=== PATIENT | female | born 1945 | race Caucasian/White ===

== ENCOUNTER 2016-06-09 06:36 | Inpatient (IN) | payer OTHER, BC ==
[2016-05-18 08:06] VITALS: BMI 36.0
--- NOTE | 2016-05-18 08:48 | PAT Medication Instructions ---
Service Date May 18, 2016. Current Home Medication List Aspirin (Aspirin Ec), 81 MG PO QAM Cholecalciferol (Vitamin D), 1 TAB PO QAM Ferrous Sulfate (Iron), 1 TAB PO QAM Losartan Potassium (Cozaar), 100 MG PO HS Metformin Hcl (Glucophage), 1,000 MG PO BID Omeprazole (Prilosec), 20 MG PO HS Rosuvastatin Calcium (Crestor), 20 MG PO HS Venlafaxine Hcl (Effexor Xr), 1 CAPSULE PO HS Medication Instructions For Your Scheduled Surgery - Hold the following medications 48 hours prior to surgery: Metformin Hcl (Glucophage), 1,000 MG PO BID - Hold the following medications the morning of surgery: Cholecalciferol (Vitamin D), 1 TAB PO QAM Ferrous Sulfate (Iron), 1 TAB PO QAM - TAKE the following medications the morning of surgery with a sip of water OTHERWISE NOTHING TO EAT OR DRINK AFTER MIDNIGHT: Aspirin (Aspirin Ec), 81 MG PO QAM - Take the following medications as scheduled the night before surgery: Omeprazole (Prilosec), 20 MG PO HS Rosuvastatin Calcium (Crestor), 20 MG PO HS Venlafaxine Hcl (Effexor Xr), 1 CAPSULE PO HS - DO NOT Take the following medication the night before surgery: Losartan Potassium (Cozaar), 100 MG PO HS If you have any questions please call us at [phone] or [phone] or [phone]
[2016-05-18 09:52] LABS: BASO % 0.2 %; BASO ABS # 0.01 K/uL (0-0.2); COMPLETE YES; EOS % 1.2 %; HEMATOCRIT 31.2 % (37-47); LYMPH % 30.4 %; LYMPH ABS # 1.23 K/uL (1.2-3.4); MEAN CELL VOLUME 76.8 fL (80-100); MEAN CORPUSCULAR HEMOGLOBIN 23.9 pg (25-34); MEAN CORPUSCULAR HGB CONC 31.1 g/dl (32-36); MEAN PLATELET VOLUME 9.2 fL (7.4-10.4); MONO % 16.6 %; NEUT % 50.6 %; PLATELET COUNT 197 K/uL (130-400); RED BLOOD COUNT 4.06 M/uL (4.2-5.4); WHITE BLOOD COUNT 4.04 K/uL (4.8-10.8)
[2016-05-18 10:03] LABS: BUN/CREATININE RATIO 21.1 (10-20); CALCIUM 9.6 mg/dl (8.5-10.1); CREATININE 0.67 mg/dl (0.60-1.20); POTASSIUM 4.1 mmol/L (3.5-5.1)
[2016-05-18 10:04] LABS: PROTHROMBIN TIME (PATIENT) 10.6 SECONDS (9.0-12.0)
--- NOTE | 2016-06-08 10:39 | HISTORY & PHYSICAL EXAMINATION ---
DATE OF ADMISSION: 06/09/2016 CHIEF COMPLAINT: Right hip pain. HISTORY OF PRESENT ILLNESS: The patient is a 70-year-old female with known osteoarthritis about her right hip. She had a left total hip arthroplasty just 4 months ago and has done well. She continues to have significant pain and disability with the right hip and now desires to proceed with right total hip arthroplasty. PAST MEDICAL HISTORY: Coronary artery disease, hypertension, hypercholesterolemia, type 2 diabetes, anemia, acid reflux, obesity. PAST SURGICAL HISTORY: Left hip as above, bilateral knee replacements, hysterectomy, tonsillectomy, cataract surgery. MEDICATIONS: Include venlafaxine 75 mg daily, omeprazole 20 mg daily, metformin 500 mg 2 tablets twice daily, rosuvastatin 20 mg daily, losartan 100 mg daily, iron, vitamin D, aspirin 81 mg daily. ALLERGIES: No known drug allergies. SOCIAL HISTORY AND REVIEW OF SYSTEMS: Noncontributory. PHYSICAL EXAMINATION: GENERAL: Well-nourished, well-developed elderly female who appears her stated age. HEENT: Normocephalic, atraumatic, extraocular movements intact, oropharynx pink and moist. NECK: Supple without adenopathy. LUNGS: Clear to auscultation bilaterally. HEART: Regular rate and rhythm. ABDOMEN: Soft, nontender, nondistended. EXTREMITIES: The upper extremities are within normal limits. The right hip demonstrates limited range of motion. There is limitation of active and passive internal/external rotation with pain at end range. X-RAYS: X-rays were reviewed. She has a well-aligned well-fixed total hip on the left. She has instrumentation in her lumbar spine. Her right hip demonstrates severe osteoarthritis with complete loss of the joint space. ASSESSMENT: Right hip degenerative joint disease. PLAN: Risks versus benefits were discussed. Consent was obtained. The patient's primary care physician is Dr. Piedra from [facility]. Her manager financial planning is Dr. Galvez. We will proceed with right total hip arthroplasty upon preoperative workup and medical clearance.
[~2016-06-09] VITALS: Ht 157.5 cm; Wt 91.0 kg
[2016-06-09] VITALS (9 sets, daily range): BP systolic 117–185; BP diastolic 72–114; PULSE 73–96; TEMP 36.2–36.9; O2SAT 93–99; Ht 157.5 cm; Wt 91.0 kg
[~2016-06-09 06:36] MED LIST: ACETAMINOPHEN 500 MG TAB PO SCH; ASPI81TA28 PO; BUPIVACAINE 0.5 % 5 MG/1 ML PF 10ML VIAL ONE; CEFAZOLIN 2000 MG/60 ML D5W 60 ML IV SCH; CHOL1TAB42 PO; CRS10 PO; CeleBREX 200 MG CAP PO SCH; DEXAMETHASONE 4 MG TAB PO SCH; FAMOTIDINE 20 MG TAB PO SCH; FERR1TAB23 PO; GABAPENTIN 300 MG CAP PO SCH; GLC/500 PO; LACTATED RINGER'S 1000ML 1,000 ML IV SCH; LACTATED RINGER'S 1000ML 500 ML IV ONE; LACTATED RINGER'S 1000ML IV SCH; LOSA1TAB38 PO; METOCLOPRAMIDE HCL 10 MG TAB PO SCH; OMEP20CA59 PO; TRAMADOL HCL 50 MG TAB PO SCH; VENL75CA PO
[2016-06-09] MEDS ORDERED: MIDAZOLAM HCL 1 MG/ML 2ML VIAL ONE (07:12)
[2016-06-09] MEDS ORDERED: PROPOFOL IV EMULSION 10 MG/ML 20 ML VIAL IV ONE ×2 (07:12→09:53)
[2016-06-09] MEDS ORDERED: LIDOCAINE HCL 2% 2 ML VIAL (20MG/ML) ONE (07:12)
[2016-06-09] MEDS ORDERED: FENTANYL CITRATE INJ 50 MCG/1 ML 2 ML VIAL ONE (07:13)
[2016-06-09] MEDS: TRANEXAMIC ACID INJ 1,000 MG in SODIUM CHLORIDE 0.9% 100ML 100 ML IV SCH ×2 (07:42→08:52)
--- NOTE | 2016-06-09 08:02 | History & Physical Bridge Note ---
H&P Re-Evaluation Bridge Note: I have examined the patient, reviewed the History & Physical and in the interval since the performance of the History & Physical I have noted the following changes of clinical significance: No changes noted
[2016-06-09] MEDS ORDERED: BACITRACIN 50000 UNIT VIAL ONE (08:08)
[2016-06-09] MEDS ORDERED: POVIDONE-IODINE OP SOLN 30 ML BTL ONE (08:08)
[2016-06-09] MEDS ORDERED: ROPIVACAINE 5MG/ML 30 ML 150 MG, BUPIVACAINE/EPINEPHR 0.5% MPF 30 ML, KETOROLAC TROMETH... INFIL SCH ×7 (09:00)
[2016-06-09] MEDS ORDERED: ONDANSETRON INJ 2 MG/ML 2 ML VIAL ONE (09:41)
[2016-06-09] MEDS ORDERED: PHENYLEPHRINE 100MCG/ML 5ML SYR IV PRN (10:00)
[2016-06-09] MEDS ORDERED: ATROPINE SULFATE 0.1 MG/ML 5ML SYR IV PRN (10:00)
[2016-06-09] MEDS ORDERED: EpHEDrine SULFATE INJ 50 MG/ML AMP IV PRN (10:00)
[2016-06-09] MEDS ORDERED: ONDANSETRON INJ 2 MG/ML 2 ML VIAL IV PRN ×2 (10:00→11:00)
[2016-06-09] MEDS ORDERED: HYDROmorphone INJ 2 MG/ML SYR/VIAL IV PRN (10:00)
--- NOTE | 2016-06-09 10:22 | [facility] Post Operative Brief Note ---
Immediate Operative Summary Operative Date Jun 09, 2016. Pre-Operative Diagnosis Right Hip Degenerative Joint Disease Post-Operative Diagnosis Right Hip Degenerative Joint Disease Procedure(s) Performed Right Total Hip Arthroplasty Surgeon Dr. Kendall Planisher Surgeon(s) Bruce Chapman PA-C Estimated Blood Loss 150 mL Findings severe OA Specimens A: Right Femoral Head Disposition Recovery Room / PACU
--- NOTE | 2016-06-09 10:54 | OPERATIVE REPORT ---
DATE OF OPERATION: 06/09/2016 PREOPERATIVE DIAGNOSIS: Osteoarthritis right hip. POSTOPERATIVE DIAGNOSIS: Osteoarthritis right hip. PROCEDURE: Right connective total hip arthroplasty. SURGEON: Dr. Kendall. COMPUTERIZED MILL MILL RECORDER: Bruce Chapman PA-C. ANESTHESIA: spinal COMPLICATIONS: None. OPERATION AND FINDINGS: PROCEDURE: Following induction of adequate anesthesia, the patient was placed in left lateral decubitus position and right Adams-Langenbeck incision was made. Subcutaneous tissue was sharply dissected. Electrocautery used for hemostasis. The fascia was incised throughout the length of the wound and a dobson scissor placed beneath the short external rotators. The pyriformis was tagged with #1 Vicryl. The short external rotators were divided from the posterior aspect of the femur using electrocautery. These were swept posteriorly. A T-capsulotomy incision was made and the hip was dislocated using a combination of flexion, adduction, and internal rotation. Exposure of the femoral neck with old-style Hohmann and a blunt Hohmann was carried out and a femoral rasp was utilized as a guide for making the appropriate level femoral neck cut. This bone fragment was removed and reserved on the back table. Next, attention was turned to the acetabulum where bone hook was used to retract the femur while the offset retractors were placed anterior and posteriorly. A double-angled Hohmann was placed in superior and anterior position exposing the acetabulum nicely. Acetabular labrum, as well as posterior capsule elements were removed using a long knife and a long pickup. Fovea centralis was cleared of all soft tissue. Sequential reamings were carried up to a 50 and decision was made to proceed with impaction of a 50 trabecular metal cup. This was impacted and held using a single 35 mm bone screw. The acetabular liner was placed with 15 of elevated posterior wall in the superior and posterior position. Next, attention was turned to the femoral portion of the case where a Bovie and pickup was used to further clear short external rotators from their insertion on the femur. Box osteotome was used to gain access to the femoral canal and the T-handled rasp and a rattail rasp were used to further open and lateral the canal. Sequentially raspings were carried up which gave good fit and fill of the proximal femur. A trial reduction was carried out and femoral stem 3 offset femoral neck component was chosen as the size to be used. A -5 x 36 mm ceramic femoral head was impacted into position, +0 head was utilized. The trial reduction was stable in all degrees of rotation with no [id number] impingement. The hip was dislocated. The trial components were removed and the final femoral stem, neck, and femoral head combination were assembled on the back table and impacted into position. Hip was relocated. Range of motion checked once again successful and the wound was irrigated. The pyriformis repaired to the greater trochanter using #1 Vicryl [id number] suture. A Hemovac drain was placed and the fascia was closed using #1 Vicryl, subcutaneous tissue was closed using 0 Dexon, and skin was closed with stefani. Sterile dressing of Adaptic, 4 x 4's, ABDs, and foam tape was applied. Recovery room stable. The patient tolerated the procedure well. Due to the complex nature of the procedure, the entire surgery was performed with the operational assistance of Bruce Chapman PA-C. The health care assistant, under direct supervision, was involved in the actual performance of all aspects of the surgical procedure including hemostasis, tissue retraction and incision, instrument management, patient positioning, and wound closure. I attest to the content of the Intraoperative Record and any orders documented therein. Any exceptions are noted below. AMANDA
[2016-06-09] MEDS ORDERED: ALUMINUM/MAGNESIUM/SIMETH (MAALOX MAX) 30 ML UDC PO PRN (11:00)
[2016-06-09] MEDS ORDERED: DiphenhydrAMINE HCL 50 MG/ML VIAL IV PRN (11:00)
[2016-06-09] MEDS ORDERED: MAGNESIUM HYDROXIDE SUSP 30 ML UDC PO PRN (11:00)
[2016-06-09] MEDS ORDERED: BISACODYL 10 MG SUPP PR PRN (11:00)
[2016-06-09] MEDS ORDERED: ZOLPIDEM TARTRATE 5 MG TAB PO PRN (11:00)
[2016-06-09] MEDS ORDERED: MoRPHine SULFATE 2 MG/ML CARP IV PRN (11:00)
--- NOTE | 2016-06-09 11:53 | DIAGNOSTIC IMAGING REPORT ---
RIGHT PELVIS/UNILATERAL HIP 1 VIEW CLINICAL HISTORY: Right hip arthroplasty. COMPARISON: Pelvis radiograph January 21, 2016. FINDINGS: Alignment of the right hip arthroplasty is anatomic. There is an acetabular screw. Surgical drain is in place. There is no fracture or unexpected radiopaque foreign body. Skin stefani are present. Alignment of left hip arthroplasty is anatomic. IMPRESSION: Expected findings following total right hip arthroplasty. Electronically signed by: Obed Hernandez M.D. 06/09/2016 11:52 AM Dictated Date/Time: 06/09/2016 11:51 AM
[2016-06-09] MEDS ORDERED: DEXTROSE 50% 50 ML SYR IV PRN (12:30)
[2016-06-09] MEDS ORDERED: GLUCAGON FOR INJ 1 MG VIAL SQ PRN (12:30)
[2016-06-09] MEDS ORDERED: GLUCOSE 40% GEL 15 GM TUBE PO PRN (12:30)
[2016-06-09] MEDS ORDERED: GLUCOSE 10 TABS/TUBE PO PRN (12:30)
[2016-06-09] MEDS ORDERED: MoRPHine SULFATE 4 MG/ML 1 ML CARP\\VIAL IV PRN (12:45)
[2016-06-09] MEDS ORDERED: MoRPHine SULFATE 10 MG/ML CARP/VIAL IV PRN (12:45)
[2016-06-09] MEDS: SODIUM CHLORIDE 0.9% 1000ML 1,000 ML IV SCH ×2 (13:08→21:36)
[2016-06-09] MEDS: ACETAMINOPHEN 500 MG TAB PO SCH ×2 (13:09→21:35)
[2016-06-09] MEDS: KETOROLAC TROMETHAMINE 15 MG/ML VIAL IV. SCH ×2 (13:10→20:31)
--- NOTE | 2016-06-09 13:23 | Anesthesiology Progress Note ---
Anesthesia Post Op Note Date & Time Jun 09, 2016 at 13:23 Vital Signs Pain Intensity: 0.0 Vital Signs Past 12 Hours Date Time Temp Pulse Resp B/P Pulse Ox O2 Delivery O2 Flow Rate FiO2 06/09/16 13:16 36.4 80 18 144/83 98 Nasal Cannula 2.0 06/09/16 12:25 36.6 79 18 125/79 98 Nasal Cannula 2.0 06/09/16 11:55 98 Nasal Cannula 2.0 06/09/16 11:55 36.6 81 18 138/80 98 Nasal Cannula 2.0 06/09/16 11:55 98 Nasal Cannula 2.0 06/09/16 11:40 151/81 06/09/16 11:39 80 16 06/09/16 11:39 79 16 97 06/09/16 11:38 151/82 06/09/16 11:35 155/98 06/09/16 11:34 83 16 06/09/16 11:34 83 16 98 06/09/16 11:34 36.8 06/09/16 11:33 88 16 06/09/16 11:33 88 16 100 06/09/16 11:30 149/84 06/09/16 11:28 77 16 96 06/09/16 11:28 77 16 06/09/16 11:25 133/79 06/09/16 11:23 75 14 99 06/09/16 11:23 75 14 06/09/16 11:22 75 16 96 06/09/16 11:22 76 16 06/09/16 11:20 131/78 06/09/16 11:17 76 16 06/09/16 11:17 75 16 95 06/09/16 11:15 140/75 06/09/16 11:12 77 19 06/09/16 11:12 77 19 98 06/09/16 11:11 78 14 96 06/09/16 11:11 77 14 06/09/16 11:10 139/79 06/09/16 11:06 82 15 06/09/16 11:06 81 15 99 06/09/16 11:05 140/94 06/09/16 11:01 86 18 99 06/09/16 11:01 84 18 06/09/16 11:00 144/81 06/09/16 10:56 36.8 82 20 134/77 96 Nasal Cannula 2 06/09/16 10:56 79 24 06/09/16 10:56 79 24 134/77 98 06/09/16 07:05 36.9 96 20 185/114 98 Room Air Notes Mental Status: alert / awake / arousable, participated in evaluation Pt Amnestic to Procedure: Yes Nausea / Vomiting: adequately controlled Pain: adequately controlled Airway Patency, RR, SpO2: stable & adequate BP & HR: stable & adequate Hydration State: stable & adequate Anesthetic Complications: no major complications apparent
--- NOTE | 2016-06-09 14:06 | Medical Consult ---
Consultation Date of Consultation: Jun 09, 2016. Attending Physician: Aly Kendall M.D. Reason for Consultation: Medical Management History of Present Illness Ms. Villa is a 70 y/o female with PMHx of CAD with Myocardial Infarction (1995 ), HTN, HLD, T2DM, GERD, and Iron Deficiency Anemia who is S/P R LOUISA. Patient currently pain free as spinal anesthesia still active. She is currently eating and tolerated diet at this time. She reports that she had a cardiac catheterization after her LA without stent placement and has no further issues. 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 She also has a history of anemia and has had recent evaluations for cause. Pre-op labs support a microcytic anemia. Reports colonoscopy and EGD in May with polyps removed with no other etiology of blood loss appreciated per patient report. She has been initiated on iron supplementation since May and H&H monitored as outpatient. She denies fever/chills, CP, SOB, N/V, abdominal pain, dysuria, constipation/diarrhea. Past Medical/Surgical History Medical Problems: (1) Arthritis of knee, left (2) Degenerative joint disease of right hip (3) GERD (gastroesophageal reflux disease) (4) Hyperlipidemia (5) Hypertension (6) Iron deficiency anemia (7) Left hip djd (8) Myocardial infarction (9) Type 2 diabetes mellitus Surgical Problems: (1) Status post total hip replacement, left Family History Cancer FATHER Diabetes mellitus MOTHER Social History Smoking Status: Never Smoker Smokeless Tobacco Use: No Alcohol Use: none Drug Use: none Marital Status: Housing Status: lives with family Occupation Status: retired Allergies Coded Allergies: Hydrocodone (Verified Adverse Reaction, Intermediate, PT BECAME "VERY GROGGY", 06/09/16) Oxycodone (Verified Adverse Reaction, Intermediate, PT WAS IN A "DAZE", N/ V, 06/09/16) Current Inpatient Medications Current Inpatient Medications Medications (Trade) Dose Ordered Sig/Cricket Route Start Time Stop Time Status Last Admin Dose Admin Lactated Ringer's 1,000 ml @ 15 mls/hr Q24H IV 06/09/16 06:00 06/10/16 05:59 Lactated Ringer's 1,000 ml @ 60 mls/hr [id number] IV 06/09/16 06:00 06/09/16 22:39 06/09/16 07:19 60 MLS/HR Cefazolin Sodium (Ancef 2000mg/60 ml D5W) 60 ml @ 100 mls/hr PREOP IV 06/09/16 06:00 06/09/16 18:00 06/09/16 09:14 100 MLS/HR Acetaminophen (Tylenol Tab) 1,000 mg PREOP PO 06/09/16 06:00 06/09/16 18:00 06/09/16 07:27 1,000 MG Celecoxib (CeleBREX CAP) 200 mg PREOP PO 06/09/16 06:00 06/09/16 18:00 06/09/16 07:28 200 MG Dexamethasone (Decadron Tab) 8 mg PREOP PO 06/09/16 06:00 06/09/16 18:00 06/09/16 07:28 8 MG Famotidine (Pepcid Tab) 20 mg PREOP PO 06/09/16 06:00 06/09/16 18:00 06/09/16 07:29 20 MG Gabapentin (Neurontin Cap) 300 mg PREOP PO 06/09/16 06:00 06/09/16 18:00 06/09/16 07:28 300 MG Metoclopramide HCl 10 mg 10 mg PREOP PO 06/09/16 06:00 06/09/16 18:00 06/09/16 07:28 10 MG Tranexamic Acid/ Sodium Chloride (Cyklokapron Inj/ Nss 100ml) 110 ml @ 660 mls/hr TODAY@06,0630 IV 06/09/16 06:00 06/09/16 18:00 06/09/16 08:52 660 MLS/HR Hydromorphone HCl (Dilaudid Inj) 0.5 mg Q5M PRN IV 06/09/16 10:00 06/09/16 15:00 Ondansetron HCl (Zofran Inj) 4 mg ONE PRN IV 06/09/16 10:00 06/09/16 15:00 Ephedrine Sulfate (EpHEDrine SULFATE INJ) 5 mg Q5M PRN IV 06/09/16 10:00 06/09/16 15:00 Atropine Sulfate (Atropine Sulfate 0.1MG/Ml Inj) 0.5 mg Q1M PRN IV 06/09/16 10:00 06/09/16 15:00 Phenylephrine HCl (Luis Alberto-Synephrine 500MCG/5ML Syr) 100 mcg Q5M PRN IV 06/09/16 10:00 06/09/16 15:00 Losartan Potassium (coZAAR TAB) 100 mg HS PO 06/09/16 21:00 07/09/16 20:59 Rosuvastatin Calcium (Crestor Tab) 20 mg HS PO 06/09/16 21:00 07/09/16 20:59 Venlafaxine HCl (effeXOR EXTENDED REL CAP) 75 mg HS PO 06/09/16 21:00 07/09/16 20:59 Cholecalciferol (Vitamin D Tab) 5,000 inter.unit QAM PO 06/10/16 09:00 07/10/16 08:59 Morphine Sulfate (MoRPHine SULFATE INJ) 2 mg Q4HWA PRN IV 06/09/16 11:00 06/23/16 10:59 Insulin Aspart SLIDING SCALE G... ACHS SC 06/09/16 17:15 07/09/16 17:14 Sodium Chloride (Nss 1000ml) 1,000 ml @ 100 mls/hr Q10H IV 06/09/16 12:30 06/10/16 12:29 06/09/16 13:08 100 MLS/HR Ketorolac Tromethamine (Toradol Inj) 15 mg Q6H IV. 06/09/16 14:00 06/10/16 13:59 06/09/16 13:10 15 MG Acetaminophen (Tylenol Tab) 1,000 mg Q8 PO 06/09/16 14:00 07/09/16 13:59 06/09/16 13:09 1,000 MG Magnesium Hydroxide (Milk Of Magnesia Susp) 30 ml Q6H PRN PO 06/09/16 11:00 07/09/16 10:59 Bisacodyl (Dulcolax Supp) 10 mg DAILY PRN AR 06/09/16 11:00 07/09/16 10:59 Senna (Senokot Tab) 17.2 mg HS PO 06/09/16 21:00 07/09/16 20:59 Docusate Sodium (coLACE CAP) 100 mg BID PO 06/09/16 21:00 07/09/16 20:59 Diphenhydramine HCl (Benadryl Inj) 25 mg Q8H PRN IV 06/09/16 11:00 07/09/16 10:59 Al Hydrox/Mg Hydrox/Simethicone (Maalox Max Susp) 15 ml Q4H PRN PO 06/09/16 11:00 07/09/16 10:59 Zolpidem Tartrate (Ambien Tab) 5 mg HSZ PRN PO 06/09/16 11:00 07/09/16 10:59 Multivitamins (Multivitamin Tab) 1 tab QAM PO 06/10/16 09:00 07/10/16 08:59 Ondansetron HCl (Zofran Inj) 4 mg Q6H PRN IV 06/09/16 11:00 07/09/16 10:59 Ferrous Gluconate (Ferrous Gluconate Tab) 324 mg TIDM PO 06/09/16 17:45 07/09/16 17:44 Pantoprazole Sodium (Protonix Tab) 40 mg QAM PO 06/10/16 09:00 07/10/16 08:59 Tramadol HCl 1 TABLET FOR PAIN RATING... Q4H PRN PO 06/09/16 11:00 07/09/16 10:59 Cefazolin Sodium/ Dextrose (Ancef Iv/D5 50ml) 60 ml @ 100 mls/hr Q8H IV 06/09/16 18:00 06/10/16 02:35 Aspirin (Ecotrin Tab) 81 mg BID PO 06/09/16 21:00 07/09/16 20:59 Glucose (Glucose 40% Gel) 15-30 GRAMS 15 GRAMS... UD PRN PO 06/09/16 12:30 07/09/16 12:29 Glucose (Glucose Chew Tab) 4-8 Tablets 4 Tabl... UD PRN PO 06/09/16 12:30 07/09/16 12:29 Dextrose (Dextrose 50% 50ML Syringe) 25-50ML OF 50% DW IV FOR... UD PRN IV 06/09/16 12:30 07/09/16 12:29 Glucagon (Glucagon Inj) 1 mg UD PRN SQ 06/09/16 12:30 07/09/16 12:29 Morphine Sulfate (MoRPHine SULFATE INJ) 4 mg Q4HWA PRN IV 06/09/16 12:45 06/23/16 12:44 Morphine Sulfate (MoRPHine SULFATE INJ) 6 mg Q4HWA PRN IV 06/09/16 12:45 06/23/16 12:44 Review of Systems Constitutional: No chills, No fever Eyes: No worsening of vision Respiratory: No cough, No shortness of breath Cardiovascular: No chest pain Abdomen: No constipation, No diarrhea, No nausea, No pain, No vomiting Musculoskeletal: No calf pain, No joint pain, No swelling Genitourinary - Female: No dysuria Neurologic: + numbness/tingling (2/2 spinal anesthesia of RLE) Endocrine: No fatigue Hematologic / Lymphatic: No abnormal bleeding/bruising, No clotting problems Integumentary: No rash Physical Exam Date Time Temp Pulse Resp B/P Pulse Ox O2 Delivery O2 Flow Rate FiO2 06/09/16 13:16 36.4 80 18 144/83 98 Nasal Cannula 2.0 06/09/16 12:25 36.6 79 18 125/79 98 Nasal Cannula 2.0 06/09/16 11:55 98 Nasal Cannula 2.0 06/09/16 11:55 36.6 81 18 138/80 98 Nasal Cannula 2.0 06/09/16 11:55 98 Nasal Cannula 2.0 06/09/16 11:40 151/81 06/09/16 11:39 80 16 06/09/16 11:39 79 16 97 06/09/16 11:38 151/82 06/09/16 11:35 155/98 06/09/16 11:34 83 16 06/09/16 11:34 83 16 98 06/09/16 11:34 36.8 06/09/16 11:33 88 16 06/09/16 11:33 88 16 100 06/09/16 11:30 149/84 06/09/16 11:28 77 16 96 06/09/16 11:28 77 16 06/09/16 11:25 133/79 06/09/16 11:23 75 14 99 06/09/16 11:23 75 14 06/09/16 11:22 75 16 96 06/09/16 11:22 76 16 06/09/16 11:20 131/78 06/09/16 11:17 76 16 06/09/16 11:17 75 16 95 06/09/16 11:15 140/75 06/09/16 11:12 77 19 06/09/16 11:12 77 19 98 06/09/16 11:11 78 14 96 06/09/16 11:11 77 14 06/09/16 11:10 139/79 06/09/16 11:06 82 15 06/09/16 11:06 81 15 99 06/09/16 11:05 140/94 06/09/16 11:01 86 18 99 06/09/16 11:01 84 18 06/09/16 11:00 144/81 06/09/16 10:56 36.8 82 20 134/77 96 Nasal Cannula 2 06/09/16 10:56 79 24 06/09/16 10:56 79 24 134/77 98 06/09/16 07:05 36.9 96 20 185/114 98 Room Air General Appearance: WD/WN, no apparent distress Head: normocephalic, atraumatic Eyes: sclerae normal ENT: hearing grossly normal Neck: supple, no JVD, trachea midline Respiratory/Chest: lungs clear, normal breath sounds, no respiratory distress, no accessory muscle use Cardiovascular: regular rate, rhythm, no gallop, no murmur Abdomen/GI: normal bowel sounds, non tender, soft Extremities/Musculoskelatal: no calf tenderness, no pedal edema, + pertinent finding (Drain of R Hip draining dark blood; movement of foot intact; cap refill immediate with 2+ posterior tibialis pulses present) Neurologic/Psych: alert, oriented x 3 Skin: normal color, warm/dry Laboratory Results Last 24 Hours Test 06/09/16 07:02 06/09/16 07:05 06/09/16 11:20 06/09/16 12:51 Hepatitis C Antibody Screen NEG Bedside Glucose 168 mg/dl 227 mg/dl 213 mg/dl Assessment & Plan Ms. Villa is a 70 y/o female with PMHx of CAD with Myocardial Infarction (1995 ), HTN, HLD, T2DM, GERD, and Iron Deficiency Anemia who is S/P R LOUISA. S/P R LOUISA 2/2 Severe Osteoarthritis: - Pain management, PT/OT, IVF, DVT prophylaxis per primary team - DVT prophylaxis - ASA 81 mg BID CAD with LA and HLD: - Continue ASA coverage and Rosuvastatin 20 mg daily HTN: - Losartan 100 mg daily T2DM: HbA1c 6.2 - Hold Metformin today probably can resume in AM as long as patient tolerates diet and kidney function evaluated - SSI with correction factor Iron Deficiency Anemia: - Continue supplementation and monitor H&H GERD: - Protonix 40 mg daily as Omeprazole interchange Thank you for the consultation. Hospitalists will continue to follow ATTENDING ATTESTATION I have seen and examined patient this am. I have discussed plan of care in detail with JETHRO and agree with plan as stated above. Patient had Right total hip replacement. Currently has no complaints Vitals-reviewed GEN- NAD CVS-RRR RESP-+ rhonchi and wheezes ABD-CTA EXT- no edema Labs-reviewed Right Total Hip Replacement POD#0 DMII CAD HTN - pain control - PT/OT
[2016-06-09] MEDS: TRAMADOL HCL 50 MG TAB PO PRN ×2 (16:24→20:30)
[2016-06-09] MEDS: CEFAZOLIN IV 2,000 MG in DEXTROSE 5% 50ML 50 ML IV SCH (18:27)
[2016-06-09] MEDS: FERROUS GLUCONATE 324 MG TAB PO SCH (18:27)
[2016-06-09] MEDS: INSULIN ASPART 100 UNITS/ML 3 ML PEN SC SCH ×2 (19:01→21:36)
[2016-06-09] MEDS: ROSUVASTATIN CALCIUM 10 MG TAB PO SCH (20:30)
[2016-06-09] MEDS: VENLAFAXINE HCL XR 75 MG CAPXR PO SCH (20:30)
[2016-06-09] MEDS: ASPIRIN 81 MG ECTAB PO SCH (20:30)
[2016-06-09] MEDS: SENNA 8.6 MG TAB PO SCH (20:30)
[2016-06-09] MEDS: DOCUSATE SODIUM 100 MG CAP PO SCH (20:30)
[2016-06-09] MEDS: LOSARTAN POTASSIUM 50 MG TAB PO SCH (20:31)
[2016-06-10] VITALS (7 sets, daily range): BP systolic 119–178; BP diastolic 74–93; PULSE 71–108; TEMP 36.6–36.9; O2SAT 96–99
[2016-06-10] MEDS: KETOROLAC TROMETHAMINE 15 MG/ML VIAL IV. SCH ×2 (02:15→09:12)
[2016-06-10] MEDS: CEFAZOLIN IV 2,000 MG in DEXTROSE 5% 50ML 50 ML IV SCH (02:15)
[2016-06-10] MEDS: TRAMADOL HCL 50 MG TAB PO PRN ×3 (02:30→20:50)
[2016-06-10] MEDS: ACETAMINOPHEN 500 MG TAB PO SCH ×3 (05:37→21:40)
[2016-06-10 05:47] LABS: HEMATOCRIT 28.5 % (37-47); MEAN CELL VOLUME 79.8 fL (80-100); MEAN CORPUSCULAR HEMOGLOBIN 25.5 pg (25-34); MEAN CORPUSCULAR HGB CONC 31.9 g/dl (32-36); MEAN PLATELET VOLUME 8.6 fL (7.4-10.4); PLATELET COUNT 186 K/uL (130-400); RED BLOOD COUNT 3.57 M/uL (4.2-5.4); WHITE BLOOD COUNT 6.44 K/uL (4.8-10.8)
[2016-06-10 06:13] LABS: BUN/CREATININE RATIO 27.5 (10-20); CALCIUM 8.7 mg/dl (8.5-10.1); CREATININE 0.47 mg/dl (0.60-1.20); POTASSIUM 4.4 mmol/L (3.5-5.1)
[2016-06-10 06:14] LABS: ANISOCYTOSIS PRESENT; COMPLETE YES; IG% 0.3 %; LYMPH % 12.1 %; LYMPH ABS # 0.78 K/uL (1.2-3.4); MONO % 14.3 %; NEUT % 73.3 %
[2016-06-10] MEDS: INSULIN ASPART 100 UNITS/ML 3 ML PEN SC SCH ×4 (08:00→20:54)
--- NOTE | 2016-06-10 08:06 | Orthopedic Progress Note ---
Orthopedic Progress Note Date of Service Jun 10, 2016. Subjective Post OP Day: 1 Reports: feeling well, Denies: SOB, calf pain, chest pain, light headedness, nausea / vomiting Objective calves soft nontender, N/V intact, hip located, dressing C/D/I (Prevena intact) , A&O x3, toes mobile Date Time Temp Pulse Resp B/P Pulse Ox O2 Delivery O2 Flow Rate FiO2 06/10/16 07:51 Room Air 06/10/16 03:16 36.7 79 16 132/81 98 Room Air 06/09/16 23:10 36.6 80 16 139/85 97 Room Air 06/09/16 19:25 Room Air 06/09/16 19:00 36.5 91 18 147/80 96 Room Air 06/09/16 15:10 36.2 73 18 127/73 95 Room Air 06/09/16 14:55 36.5 74 16 117/72 93 Room Air 06/09/16 13:55 36.7 80 16 123/73 99 Nasal Cannula 2.0 06/09/16 13:16 36.4 80 18 144/83 98 Nasal Cannula 2.0 06/09/16 12:25 36.6 79 18 125/79 98 Nasal Cannula 2.0 06/09/16 11:55 98 Nasal Cannula 2.0 06/09/16 11:55 36.6 81 18 138/80 98 Nasal Cannula 2.0 06/09/16 11:55 98 Nasal Cannula 2.0 06/09/16 11:40 151/81 06/09/16 11:39 80 16 06/09/16 11:39 79 16 97 06/09/16 11:38 151/82 06/09/16 11:35 155/98 06/09/16 11:34 83 16 06/09/16 11:34 83 16 98 06/09/16 11:34 36.8 06/09/16 11:33 88 16 06/09/16 11:33 88 16 100 06/09/16 11:30 149/84 06/09/16 11:28 77 16 96 06/09/16 11:28 77 16 06/09/16 11:25 133/79 06/09/16 11:23 75 14 99 06/09/16 11:23 75 14 06/09/16 11:22 75 16 96 06/09/16 11:22 76 16 06/09/16 11:20 131/78 06/09/16 11:17 76 16 06/09/16 11:17 75 16 95 06/09/16 11:15 140/75 06/09/16 11:12 77 19 06/09/16 11:12 77 19 98 06/09/16 11:11 78 14 96 06/09/16 11:11 77 14 06/09/16 11:10 139/79 06/09/16 11:06 82 15 06/09/16 11:06 81 15 99 06/09/16 11:05 140/94 06/09/16 11:01 86 18 99 06/09/16 11:01 84 18 06/09/16 11:00 144/81 06/09/16 10:56 36.8 82 20 134/77 96 Nasal Cannula 2 06/09/16 10:56 79 24 06/09/16 10:56 79 24 134/77 98 Laboratory Results 24 Hours: Test 06/10/16 05:32 White Blood Count 6.44 K/uL Red Blood Count 3.57 M/uL Hemoglobin 9.1 g/dL Hematocrit 28.5 % Mean Corpuscular Volume 79.8 fL Mean Corpuscular Hemoglobin 25.5 pg Mean Corpuscular Hemoglobin Concent 31.9 g/dl Platelet Count 186 K/uL Mean Platelet Volume 8.6 fL Neutrophils (%) (Auto) 73.3 % Lymphocytes (%) (Auto) 12.1 % Monocytes (%) (Auto) 14.3 % Eosinophils (%) (Auto) 0.0 % Basophils (%) (Auto) 0.0 % Neutrophils # (Auto) 4.72 K/uL Lymphocytes # (Auto) 0.78 K/uL Monocytes # (Auto) 0.92 K/uL Eosinophils # (Auto) 0.00 K/uL Basophils # (Auto) 0.00 K/uL Assessment & Plan Assessment: POD 1 s/p Right LOUISA Plan: PT/OT today Plan for Home Health PT upon dc Inhouse Planning Pain Management: Toradol, Ultram, Morphine, PO Tylenol DVT Prophylaxis: TEDs, SCDs, ASA Discharge Planning Discharge Planning: home with home health Pain Management: Celebrex, Ultram, PO Tylenol DVT Prophylaxis: TEDs, ASA Therapy: Physical Therapy
--- NOTE | 2016-06-10 08:10 | Discharge Instructions ---
Discharge Instructions Admission Reason for Admission: Right Hip Osteoarthritis Discharge Discharge Diagnosis / Problem: Right Hip Djd Discharge Goals Goal(s): Decrease discomfort, Improve function Activity Recommendations Activity Limitations: per Instructions/Follow-up section Weightbearing Status: Right weightbearing (as tolerated) . Instructions / Follow-Up Instructions / Follow-Up ACTIVITY RECOMMENDATIONS: SELF CARE INSTRUCTIONS AFTER TOTAL HIP REPLACEMENT Until the incision and soft tissues around your hip have healed, there is a possibility that the hip prosthesis could dislocate. A. Observe the following precautions to prevent dislocation: 1. Don't bend your hip greater than 90 degrees. 2. Avoid crossing your legs or ankles while standing or lying. 3. Sit with your feet placed 6 inches apart. 4. When sitting, keep your knees below your hips. Sit on a firm surface, avoid deep, soft chairs and couches. Use an elevated toilet seat in the bathroom. 5. Don't bend over at the waist. Use a long handled shoehorn and a sock aid to help you put on your shoes and socks. A tanning drum operator can help you grape picker objects that are too high or too low to reach. 6. Keep car riding to a minimum for at least one month after surgery. B. Your balance may be shaky for a while. Use crutches or a walker until directed by your doctor. C. Use hand rails when walking on stairs. D. Wear low heeled shoes with non-slip soles. E. Be sure that your floors are free of things that could trip you - throw rugs , electrical cords, small objects. Avoid wet and waxed floors, especially with crutches and canes. F. Try to walk several times a day with rest periods between. G. Continue with all the exercises taught to you in the hospital. Again, make walking a part of your daily routine. SPECIAL CARE INSTRUCTIONS: VERY IMPORTANT TO READ AND REVIEW A. You may still be at risk for phlebitis and blood clots. 1. Wear surgical stockings (MELANIA hose) for 2 weeks after surgery to improve circulation and reduce swelling. 2. Take Aspirin 81mg twice daily for 4 weeks or as directed by your doctor. This is your blood thinner. 3. High risk patients may be prescribed a stronger blood thinner if necessary. 4. If you are on Coumadin normally, your family doctor/icebox man should monitor your blood work. Expect a phone call the day of or the day after bloodwork is drawn to adjust your dosage. B. You must take antibiotics before having dental work, bladder, bowel and other surgery. Your doctor will provide you with a permanent card to carry describing precautions. C. Call [facility] if you have a fever, redness or swelling around the incision, cloudy drainage from incision, or sudden increase in pain in your hip, not relieved by your regular pain medication. D. Please call the office at if you have any concerns or questions about your operation or recovery. * YOU MAY SHOWER, NO TUB BATHS UNTIL CLEARED BY YOUR DOCTOR. * WEAR MELANIA HOSE 20 HOURS PER DAY FOR 2 WEEKS. * YOU SHOULD USE A WALKER OR CRUTCHES FOR 2-4 WEEKS. THIS WILL HELP PREVENT STRAIN ON YOUR HIP MUSCLE AND ALLOW IT TO HEAL PROPERLY. YOU MAY WEAN TO A CANE TOLERATED. * MOST PATIENTS WILL HAVE HOME NURSING FOR THERAPY. IF YOU DECIDE TO DO OUTPATIENT PHYSICAL THERAPY, PLEASE SCHEDULE THIS 3 TIMES PER WEEK. * Prevena- This is a large suction dressing covering your incision. This will help pull any excess drainage from the wound and allow your incision to heal properly. You may shower with this if you can keep the unit outside of the shower. If any bleeding or leakage is noted please call your doctor's office. This will remain on your incision for 7 days and then should be removed. This can be done yourself or by the home nursing staff if applicable. The entire unit is disposable once removed. Once removed, keep incision clean and dry. If redness or drainage is noted, please call your surgeon. . FOLLOW UP VISIT: If appointment is not already scheduled: Please call [facility] to make a follow-up appointment for 2 weeks after your surgery at . Current Hospital Diet Patient's current hospital diet: Diabetes Type 2 Diet Discharge Diet Recommended Diet: Diabetes Type 2 Diet Procedures Procedures Performed: Right Total Hip Arthroplasty Pending Studies Studies pending at discharge: no Medical Emergencies . Who to Call and When: Medical Emergencies: If at any time you feel your situation is an emergency, please call [phone] immediately. . Non-Emergent Contact Non-Emergency issues call your: Surgeon Call Non-Emergent contact if: temperature is above 101.5, your pain is not controlled, your pain is worsening, wound has increased drainage, wound has increased redness . "Provider Documentation" section prepared by Bruce Chapman. VTE Core Measure Inpt VTE Proph given/why not?: Other Anticoagulation, T.E.D. Stockings, SCD's [place] Drug Monitoring Program Search Results: patient reviewed within database, no issues identified
--- NOTE | 2016-06-10 08:14 | Anesthesiology Progress Note ---
Anesthesia Post Op Note Date & Time Jun 10, 2016 at 08:14 Vital Signs Pain Intensity: 0.0 Vital Signs Past 12 Hours Date Time Temp Pulse Resp B/P Pulse Ox O2 Delivery O2 Flow Rate FiO2 06/10/16 08:09 36.9 80 22 140/83 98 Room Air 06/10/16 07:51 Room Air 06/10/16 03:16 36.7 79 16 132/81 98 Room Air 06/09/16 23:10 36.6 80 16 139/85 97 Room Air Notes Mental Status: alert / awake / arousable, participated in evaluation Pt Amnestic to Procedure: Yes Nausea / Vomiting: adequately controlled Pain: adequately controlled Airway Patency, RR, SpO2: stable & adequate BP & HR: stable & adequate Hydration State: stable & adequate Neuraxial Anesthesia: sensory block resolved Anesthetic Complications: no major complications apparent
[2016-06-10] MEDS: MULTIVITAMIN TAB PO SCH (09:12)
[2016-06-10] MEDS: FERROUS GLUCONATE 324 MG TAB PO SCH ×3 (09:13→18:30)
[2016-06-10] MEDS: ASPIRIN 81 MG ECTAB PO SCH ×2 (09:13→20:49)
[2016-06-10] MEDS: DOCUSATE SODIUM 100 MG CAP PO SCH ×2 (09:13→20:48)
[2016-06-10] MEDS: CHOLECALCIFEROL 1000 INTER.UNIT TAB PO SCH (09:13)
[2016-06-10] MEDS: PANTOprazole SOD 40 MG TAB PO SCH (09:13)
[2016-06-10] MEDS: SODIUM CHLORIDE 0.9% 1000ML 1,000 ML IV SCH (09:18)
--- NOTE | 2016-06-10 12:44 | Progress Note ---
Subjective Date of Service: Jun 10, 2016. (Adela Evans PA-C) Subjective Pt evaluation today including: conversation w/ patient, physical exam, chart review, lab review, review of inpatient medication list Patient seen and evaluated. No acute events overnight. Patient reports pain is adequately controlled. Tolerating diet. No nausea, vomiting, or abdominal pain noted. Participating with PT/OT without difficulty. Verbalizes no other complaints. (Adela Evans PA-C) Review of Systems Constitutional: No chills, No fever Respiratory: No shortness of breath Cardiac: No chest pain Abdomen: No constipation, No diarrhea, No nausea, No pain, No vomiting Musculoskeletal: No joint pain Endo: No fatigue Skin: No rash (Adela Evans PA-C) Medications Current Inpatient Medications Medications (Trade) Dose Ordered Sig/Cricket Route Start Time Stop Time Status Last Admin Dose Admin Losartan Potassium (coZAAR TAB) 100 mg HS PO 06/09/16 21:00 07/09/16 20:59 06/09/16 20:31 100 MG Rosuvastatin Calcium (Crestor Tab) 20 mg HS PO 06/09/16 21:00 07/09/16 20:59 06/09/16 20:30 20 MG Venlafaxine HCl (effeXOR EXTENDED REL CAP) 75 mg HS PO 06/09/16 21:00 07/09/16 20:59 06/09/16 20:30 75 MG Cholecalciferol (Vitamin D Tab) 5,000 inter.unit QAM PO 06/10/16 09:00 07/10/16 08:59 06/10/16 09:13 5,000 INTER.UNIT Morphine Sulfate (MoRPHine SULFATE INJ) 2 mg Q4HWA PRN IV 06/09/16 11:00 06/23/16 10:59 Insulin Aspart (novoLOG ASPART) SLIDING SCALE G... ACHS SC 06/09/16 17:15 07/09/16 17:14 06/09/16 21:36 4 UNITS Ketorolac Tromethamine (Toradol Inj) 15 mg Q6H IV. 06/09/16 14:00 06/10/16 13:59 06/10/16 09:12 15 MG Acetaminophen (Tylenol Tab) 1,000 mg Q8 PO 06/09/16 14:00 4/1/17 13:59 06/10/16 05:37 1,000 MG Magnesium Hydroxide (Milk Of Magnesia Susp) 30 ml Q6H PRN PO 06/09/16 11:00 07/09/16 10:59 Bisacodyl (Dulcolax Supp) 10 mg DAILY PRN RI 06/09/16 11:00 07/09/16 10:59 Senna (Senokot Tab) 17.2 mg HS PO 06/09/16 21:00 07/09/16 20:59 06/09/16 20:30 17.2 MG Docusate Sodium (coLACE CAP) 100 mg BID PO 06/09/16 21:00 07/09/16 20:59 06/10/16 09:13 100 MG Diphenhydramine HCl (Benadryl Inj) 25 mg Q8H PRN IV 06/09/16 11:00 07/09/16 10:59 Al Hydrox/Mg Hydrox/Simethicone (Maalox Max Susp) 15 ml Q4H PRN PO 06/09/16 11:00 07/09/16 10:59 Zolpidem Tartrate (Ambien Tab) 5 mg HSZ PRN PO 06/09/16 11:00 07/09/16 10:59 Multivitamins (Multivitamin Tab) 1 tab QAM PO 06/10/16 09:00 07/10/16 08:59 06/10/16 09:12 1 TAB Ondansetron HCl (Zofran Inj) 4 mg Q6H PRN IV 06/09/16 11:00 07/09/16 10:59 Ferrous Gluconate (Ferrous Gluconate Tab) 324 mg TIDM PO 06/09/16 17:45 07/09/16 17:44 06/10/16 12:37 324 MG Pantoprazole Sodium (Protonix Tab) 40 mg QAM PO 06/10/16 09:00 07/10/16 08:59 06/10/16 09:13 40 MG Tramadol HCl (Ultram Tab) 1 TABLET FOR PAIN RATING... Q4H PRN PO 06/09/16 11:00 07/09/16 10:59 06/10/16 02:30 100 MG Aspirin (Ecotrin Tab) 81 mg BID PO 06/09/16 21:00 07/09/16 20:59 06/10/16 09:13 81 MG Glucose (Glucose 40% Gel) 15-30 GRAMS 15 GRAMS... UD PRN PO 06/09/16 12:30 07/09/16 12:29 Glucose (Glucose Chew Tab) 4-8 Tablets 4 Tabl... UD PRN PO 06/09/16 12:30 07/09/16 12:29 Dextrose (Dextrose 50% 50ML Syringe) 25-50ML OF 50% DW IV FOR... UD PRN IV 06/09/16 12:30 07/09/16 12:29 Glucagon (Glucagon Inj) 1 mg UD PRN SQ 06/09/16 12:30 07/09/16 12:29 Morphine Sulfate (MoRPHine SULFATE INJ) 4 mg Q4HWA PRN IV 06/09/16 12:45 06/23/16 12:44 Morphine Sulfate (MoRPHine SULFATE INJ) 6 mg Q4HWA PRN IV 06/09/16 12:45 06/23/16 12:44 (Adela Evans PA-C) Objective Vital Signs Date Time Temp Pulse Resp B/P Pulse Ox O2 Delivery O2 Flow Rate FiO2 06/10/16 11:59 36.8 90 20 147/85 97 Room Air 06/10/16 09:45 108 99 06/10/16 09:09 98 Room Air 06/10/16 08:09 36.9 80 22 140/83 98 Room Air 06/10/16 07:51 Room Air 06/10/16 03:16 36.7 79 16 132/81 98 Room Air 06/09/16 23:10 36.6 80 16 139/85 97 Room Air 06/09/16 19:25 Room Air 06/09/16 19:00 36.5 91 18 147/80 96 Room Air 06/09/16 15:10 36.2 73 18 127/73 95 Room Air 06/09/16 14:55 36.5 74 16 117/72 93 Room Air 06/09/16 13:55 36.7 80 16 123/73 99 Nasal Cannula 2.0 06/09/16 13:16 36.4 80 18 144/83 98 Nasal Cannula 2.0 (Adela Evans PA-C) Physical Exam General Appearance: WD/WN, no apparent distress Eyes: sclerae normal ENT: hearing grossly normal Neck: supple, no JVD, trachea midline Respiratory/Chest: lungs clear, normal breath sounds, no respiratory distress, no accessory muscle use Cardiovascular: regular rate, rhythm, no gallop, no murmur Abdomen: normal bowel sounds, non tender, soft Extremities: no calf tenderness, normal capillary refill, + pertinent finding ( drain present) Neurologic/Psychiatric: no motor/sensory deficits, alert, oriented x 3 Skin: normal color, warm/dry (Adela Evans, PARadhaC) Laboratory Results Last 24 Hours Test 06/09/16 12:51 06/09/16 16:52 06/09/16 21:29 06/10/16 05:32 Bedside Glucose 213 mg/dl 218 mg/dl 244 mg/dl White Blood Count 6.44 K/uL Red Blood Count 3.57 M/uL Hemoglobin 9.1 g/dL Hematocrit 28.5 % Mean Corpuscular Volume 79.8 fL Mean Corpuscular Hemoglobin 25.5 pg Mean Corpuscular Hemoglobin Concent 31.9 g/dl Platelet Count 186 K/uL Mean Platelet Volume 8.6 fL Neutrophils (%) (Auto) 73.3 % Lymphocytes (%) (Auto) 12.1 % Monocytes (%) (Auto) 14.3 % Eosinophils (%) (Auto) 0.0 % Basophils (%) (Auto) 0.0 % Neutrophils # (Auto) 4.72 K/uL Lymphocytes # (Auto) 0.78 K/uL Monocytes # (Auto) 0.92 K/uL Eosinophils # (Auto) 0.00 K/uL Basophils # (Auto) 0.00 K/uL RDW Standard Deviation 61.2 fL RDW Coefficient of Variation 21.1 % Immature Granulocyte % (Auto) 0.3 % Immature Granulocyte # (Auto) 0.02 K/uL Anisocytosis PRESENT Sodium Level 143 mmol/L Potassium Level 4.4 mmol/L Chloride Level 110 mmol/L Carbon Dioxide Level 24 mmol/L Anion Gap 9.0 mmol/L Blood Urea Nitrogen 13 mg/dl Creatinine 0.47 mg/dl Est Creatinine Clear Calc Drug Dose 115.2 ml/min Estimated GFR () 115.2 Estimated GFR (Non- 99.4 BUN/Creatinine Ratio 27.5 Random Glucose 139 mg/dl Calcium Level 8.7 mg/dl Test 06/10/16 07:47 06/10/16 11:39 Bedside Glucose 145 mg/dl 162 mg/dl (Adela Evans, JETHRO) Assessment and Plan Ms. Villa is a 70 y/o female with PMHx of CAD with Myocardial Infarction (1995 ), HTN, HLD, T2DM, GERD, and Iron Deficiency Anemia who is S/P R LOUISA. S/P R LOUISA 2/2 Severe Osteoarthritis: - Pain management, PT/OT, IVF, DVT prophylaxis per primary team - DVT prophylaxis - ASA 81 mg BID CAD with MT and HLD: - Continue ASA coverage and Rosuvastatin 20 mg daily HTN: - Losartan 100 mg daily T2DM: HbA1c 6.2 - Resume Metformin 1000 mg twice a day - SSI with correction factor Iron Deficiency Anemia: - Continue supplementation and monitor H&H GERD: - Protonix 40 mg daily as Omeprazole interchange Thank you for the consultation. Hospitalists will continue to follow (Adela Evans, JETHRO) ATTENDING ATTESTATION I have seen and examined patient this am. I have discussed plan of care in detail with JETHRO and agree with plan as stated above. Patient had Right total hip replacement. Currently has no complaints Vitals-reviewed GEN- NAD CVS-RRR RESP-CTA ABD-+BS EXT- no edema Labs-reviewed Right Total Hip Replacement POD#1 DMII CAD HTN - pain control - PT/OT - accuchecks /SSI/restart metformin - anticipate d/c tommorrow (Adela Knight MD)
[2016-06-10] MEDS: METFORMIN HCL 500 MG TAB PO SCH (18:30)
[2016-06-10] MEDS: ROSUVASTATIN CALCIUM 10 MG TAB PO SCH (20:48)
[2016-06-10] MEDS: SENNA 8.6 MG TAB PO SCH (20:48)
[2016-06-10] MEDS: LOSARTAN POTASSIUM 50 MG TAB PO SCH (20:48)
[2016-06-10] MEDS: VENLAFAXINE HCL XR 75 MG CAPXR PO SCH (20:48)
[2016-06-11] MEDS: ACETAMINOPHEN 500 MG TAB PO SCH (06:02)
[2016-06-11 07:06] VITALS: BP 124/78; PULSE 82; TEMP 36.6; O2SAT 97
[2016-06-11] MEDS: PANTOprazole SOD 40 MG TAB PO SCH (07:32)
[2016-06-11] MEDS: INSULIN ASPART 100 UNITS/ML 3 ML PEN SC SCH (07:32)
[2016-06-11] MEDS: MULTIVITAMIN TAB PO SCH (07:32)
[2016-06-11] MEDS: DOCUSATE SODIUM 100 MG CAP PO SCH (07:33)
[2016-06-11] MEDS: METFORMIN HCL 500 MG TAB PO SCH (07:33)
[2016-06-11] MEDS: FERROUS GLUCONATE 324 MG TAB PO SCH (07:33)
[2016-06-11] MEDS: ASPIRIN 81 MG ECTAB PO SCH (07:33)
[2016-06-11] MEDS: CHOLECALCIFEROL 1000 INTER.UNIT TAB PO SCH (07:33)
[2016-06-11] MEDS: TRAMADOL HCL 50 MG TAB PO PRN (07:37)
--- NOTE | 2016-06-11 08:25 | Orthopedic Progress Note ---
Orthopedic Progress Note Date of Service Jun 11, 2016. Subjective Post OP Day: 2 Reports: feeling well, pain controlled w PO medications, Denies: SOB, calf pain , chest pain, light headedness, nausea / vomiting Objective calves soft nontender, N/V intact, capillary refill less than 2 sec., dressing C /D/I (provena), A&O x3, toes mobile Date Time Temp Pulse Resp B/P Pulse Ox O2 Delivery O2 Flow Rate FiO2 06/11/16 07:30 Room Air 06/11/16 07:06 36.6 82 16 124/78 97 Room Air 06/11/16 00:37 Room Air 06/10/16 22:59 36.6 71 16 137/79 96 Room Air 06/10/16 17:00 Room Air 06/10/16 15:08 36.6 78 18 119/74 97 Room Air 06/10/16 11:59 36.8 90 20 147/85 97 Room Air 06/10/16 09:45 108 99 06/10/16 09:09 98 Room Air Assessment & Plan Assessment: POD 2 s/p Right LOUISA Plan: PT/OT today Plan for Home Health PT upon dc plan for discharge today Inhouse Planning Pain Management: Ultram, PO Tylenol DVT Prophylaxis: TEDs, SCDs, ASA Discharge Planning Discharge Planning: home with home health Pain Management: Celebrex, Ultram, PO Tylenol DVT Prophylaxis: TEDs, ASA Therapy: Physical Therapy
[2016-06-11] MEDS ORDERED: ONDA8TAB6 PO (08:28)
[2016-06-11] MEDS ORDERED: ACET-1138 PO (08:28)
[2016-06-11] MEDS ORDERED: ULT50X PO (08:28)
[2016-06-11] MEDS ORDERED: ASPEC81 PO (08:28)
[2016-06-11 09:44] VITALS: BP 124/78; PULSE 82; TEMP 36.6; O2SAT 97
--- NOTE | 2016-06-14 17:59 | DISCHARGE SUMMARY ---
DISCHARGE DIAGNOSIS: Degenerative joint disease, right hip. SECONDARY DIAGNOSES: Coronary artery disease, hypertension, hypercholesterolemia, diabetes mellitus type 2, anemia, gastroesophageal reflux disease, obesity. CONSULTATIONS: None. COMPLICATIONS: None. PROCEDURES: Right total hip arthroplasty performed by Dr. Kendall on 06/09/2016. BRIEF HISTORY OF PRESENT ILLNESS: As dictated in history and physical. HOSPITAL SUMMARY: The patient was admitted on the above date and had the above-noted surgery performed which she tolerated well. On her first postoperative day, she was feeling well and had no complaints. Calves were soft, nontender. Neurovascularly intact. Hip was located. Prevena was intact and toes were mobile. Vital signs were stable and she was afebrile. Hemoglobin was 9.1 and she was started on physical therapy protocol and continued on DVT prophylaxis and pain management. By her second postoperative day, she was feeling well, pain was controlled. She had no complaints. Calves were soft and nontender. Neurovascularly intact. Prevena was intact. Toes were mobile. Vital signs were stable. She was progressing well with her physical therapy and it was felt she be discharged to home with home health PT. For further review, please see chart. LABORATORY AND X-RAY DATA: As per chart. DISCHARGE INSTRUCTIONS: The patient was discharged to home in satisfactory condition on 06/11/2016. DIET: Diabetic. ACTIVITY: Weightbearing as tolerated right lower extremity. Follow LOUISA instruction sheets and special care instructions as noted. Follow up with Dr. Kendall in 2 weeks. The patient to call for appointment if one has not been made for you. DISCHARGE MEDICATIONS: Acetaminophen 1000 mg p.o. q. 8 hours, aspirin 81 mg p.o. b.i.d., Zofran 8 mg p.o. q. 8 hours p.r.n., tramadol 50-100 mg p.o. q. 4 hours p.r.n. Resume taking vitamin D 5000 units p.o. q.a.m., ferrous sulfate 325 mg p.o. q.a.m., losartan potassium 100 mg p.o. at bedtime, metformin 1000 mg p.o. b.i.d., omeprazole 20 mg p.o. at bedtime, Crestor 20 mg p.o. at bedtime, Venlafaxine 75 mg 1 capsule p.o. at bedtime. Stop taking once daily aspirin dose, please resume after 30 days and when you have finished taking the b.i.d. dosing.
== END 2016-06-11 10:13 | disposition home health service (06) | DRG 470 ==
LOC: ENRESERVTM → ENRESERVDT → C.ACU 06:36 → C.3E 07:45
PROC: 0SR903Z Replacement of Right Hip Joint with Ceramic Synthetic Substitute, Open Approach (ICD-10-PCS; principal; 2016-06-09 09:00)
DX: M16.11 Unilateral primary osteoarthritis, right hip (principal); I25.10 Atherosclerotic heart disease of native coronary artery without angina pectoris; I10 Essential (primary) hypertension; E78.00 Pure hypercholesterolemia, unspecified; E11.9 Type 2 diabetes mellitus without complications; D50.9 Iron deficiency anemia, unspecified; Z96.653 Presence of artificial knee joint, bilateral; K21.9 Gastro-esophageal reflux disease without esophagitis; E66.9 Obesity, unspecified; I25.2 Old myocardial infarction; Z68.36 Body mass index [BMI] 36.0-36.9, adult; Z79.899 Other long term (current) drug therapy